=== PATIENT | female | born 1960 | race Caucasian/White ===

== ENCOUNTER 2023-06-01 10:55 | Outpatient (RCR) | payer OTHER, SELFPAY | END 2023-06-01 23:59 | disposition home or self-care (01) | LOC: RPT 10:55 | PROVIDERS: ATTENDING PHYSICIAN Orthopaedic Surgery Sports Medicine; FAMILY PHYSICIAN Family Medicine | DX: S83.411D Sprain of medial collateral ligament of right knee, subsequent encounter (principal); Z73.6 Limitation of activities due to disability; R26.89 Other abnormalities of gait and mobility | CPT/HCPCS: 97010; 97110 ==

== ENCOUNTER 2024-11-18 16:57 | Emergency (ER) | payer OTHER, SELFPAY ==
[2024-11-18 17:02] VITALS: BP 189/91
[2024-11-18 19:38] VITALS: BMI 35.5
[2024-11-18 20:07] LABS: Hematocrit 44.4 % (37.0-47.0); Hemoglobin 14.7 g/dL (12.0-16.0); Mean Corp Hgb Conc. 33.1 g/dL (33.0-37.0); Mean Corpuscular Volume 85.9 fL (81.0-99.0); Nucleated Red Blood Cells % 0 %; Platelet Count 222 10^3/uL (130-400); Red Cell Dist. Width 13.6 % (11.5-14.5)
[2024-11-18 20:10] LABS: Urine Character Clear (Clear)
[2024-11-18 20:24] LABS: ALT (SGPT) 17 U/L (0-35); AST (SGOT) 21 U/L (14-36); Albumin 4.4 g/dl (3.5-5.0); Alkaline Phosphatase 119 U/L (38-126); Blood Urea Nitrogen 13 mg/dl (7-17); Calcium 9.9 mg/dl (8.4-10.2); Carbon Dioxide 27 mmol/L (22-30); Chloride 108 mmol/L (98-107); Estimated Creatinine Clearance 122 ml/min; Glucose 103 mg/dl (70-99); Potassium 3.8 mmol/L (3.5-5.1); Sodium 140 mmol/L (135-145); Total Protein 6.8 g/dl (6.3-8.2); eGFR > 60.00
[2024-11-18 21:19] VITALS: BP 150/73
[2024-11-18 22:24] VITALS: BP 136/60; BP 139/60
[2024-11-18 22:28] VITALS: BP 139/60
--- NOTE | 2024-11-18 22:36 | ED.GENMED ---
History of Present Illness
General
Chief Complaint: Rectal Bleeding
Source: patient
Exam Limitations: none
Time Seen by Provider: 11/18/24 19:47
History of Present Illness
History of Present Illness:
See MDM
Past History
Past History
ED Past Medical History: Asthma, Cancer (Cervical cancer, leukemia), Hypercholesterolemia and Other (Seasonal allergies, diverticulitis)
ED Past Surgical History: Gynecological (Hysterectomy)
Social History
Tobacco: Smoker
Alcohol: Occasional
Drug: None
Personal:
Living: with family
Family History
Family History: CAD and Other (Father with history of blood clots)
Phy Exam
Physical Exam
Physical Exam:
See MDM
Course
Orders/Labs/Results
Orders:
Orders
11/18/24
Complete Blood Count/With Diff Urgent
Comprehensive Metabolic Panel Urgent
11/18/24 19:59
Urinalysis Reflex To Culture Urgent
Date Specimen was Collected: 11/18/24
Time Specimen was Collected: 19:57
Urine Microscopic Reflex Cult Urgent
Urine Culture Urgent
DEANDRA Source: U
Specimen Description:
Date Specimen was Collected: 11/18/24
Time Specimen was Collected: 19:57
11/18/24 22:35
LevoFLOXacin [Levaquin] 500 mg PO NOW STA
MetroNIDAZOLE [Flagyl] 500 mg PO NOW STA
11/18/24 22:36
CT Abd/pel Without Iv Or Oral Urgent
Comment:
Reason For Exam: left flank and LLQ pain
Abnormal Lab Results
11/18/24 11/18/24
19:59 Unknown
WBC 16.1 H 10^3/uL
(4.8-10.8)
MPV 11.5 H fL
(7.4-10.4)
Abs Immat Gran (auto) 0.1 H 10^3/uL
(0-0.05)
Absolute Neuts (auto) 11.9 H 10^3/uL
(1.4-6.5)
Absolute Monos (auto) 1.3 H 10^3/uL
(0.1-0.6)
Lymphocytes % 17.4 L %
(20.5-51.1)
Chloride 108 H mmol/L
(98-107)
Glucose 103 H mg/dl
(70-99)
Ur Occult Blood Reflex 4+ A
(Negative)
Urine Nitrite (Reflex) Positive A
(Negative)
Leukocyte Esterase Rfl 3+ A
(Negative)
Urine RBC 7-10 A /HPF
(0-2)
Urine WBC (Reflex) 11-15 A /HPF
(0-5)
Urine Bacteria (Reflex) Many A
(Negative)
11/18/24 Unknown
11/18/24 Unknown
Vital Signs
Initial and Last Documented VS:
Initial Vital Signs
Temp Pulse Resp BP Pulse Ox
98.6 F 105 16 189/91 95
11/18/24 17:02 11/18/24 17:02 11/18/24 17:02 11/18/24 17:02 11/18/24 17:02
Last Documented Vital Signs
Temp Pulse Resp BP Pulse Ox
98.7 F 84 20 139/60 96
11/18/24 19:40 11/18/24 22:28 11/18/24 22:28 11/18/24 22:28 11/18/24 22:37
MDM/Problems Addressed
Differential Diagnosis Includes:
HPI and MDM Narrative:
64-year-old female presenting with left lower quadrant pain. This is also associated with left lower back pain. She started to notice bright rectal bleeding as well. Patient states this is very similar presentation to her prior episode of
diverticulitis. She denies kidney stones.
Blood work and urinalysis done prior to my assessment. Hemoglobin stable. Mild elevated white blood cell count noted.
She has a soft and minimally tender left lower quadrant exam. Given her prior history, I am concerned about diverticulitis. Given no blood thinners with a normal hemoglobin, I am less worried about rectal bleeding.
Given her allergy profile, will start Levaquin and Flagyl and obtain CT to look for any evidence of complicated diverticulitis versus alternative pathology such as kidney stone
Physical exam
General: Well appearing and non-toxic
HEENT: protecting airway
Neck: appears supple
CV: No evidence of cyanosis
Resp: No accessory muscle use
Abd: Non-distended. Mild left lower quadrant tenderness
Extremities: No deformities
Neuro: alert
Psych: Normal affect
Skin: Intact
Problems Addressed including Acute and Chronic Conditions affecting care:
1. Diverticulitis
Acuity: acute
Prognosis: stable
Details: Will start Levaquin and Flagyl. Will obtain CT to rule out any evidence of perforation
Differential Diagnosis (but not limited to): Diverticulosis, diverticulitis, colitis
Testing considered: Renal ultrasound
Drug therapy (if applicable): OTC meds, please see d/c instruction regarding Rx drugs
Amount and/or Complexity of Data Reviewed
Clinical info obtained from: Patient
External data reviewed: N/A
Labs I independently reviewed (but not limited to): Leukocytosis
Radiology: N/A
Pulse Ox: not hypoxic
EKG independently reviewed: N/A
Records Management Analyst: N/A
Critical Care: N/A
Risk of Complication:
Social Determinants of health: Good social support
Discussed with other providers: N/A
Escalation of Care includes Admit/Obs: After being observed in the Emergency Department, pt stable for discharge.
Occasional wrong word or 'sound a like' substitutions may have occurred due to the inherent limitations of voice recognition software. Read the chart carefully and recognize, using context, where substitutions have occurred.
*Pulse Oximetry
SaO2: 96
Oxygen Mode of Delivery: Room air
Patient hypoxic: no
*Critical Care Note
Total Time (30-74mins, 75-104mins- exclusive of procedures): Not Applicable
ED Attending Note
-
Portions of this chart may have been created with voice recognition software.� Occasional wrong word or��sound alike� substitutions may have occurred due to the inherent limitations of voice recognition software.
Discharge Plan
Departure
Discharge Problem:
Diverticulitis
Instructions: Diverticulitis
Prescriptions:
New
metronidazole 500 mg Tablet
500 mg PO TID Qty: 21 0RF
levofloxacin 500 mg Tablet
500 mg PO DAILY Qty: 7 0RF
No Action
simvastatin 40 mg Tablet
40 mg PO HS
metoprolol succinate 25 mg Tablet Extended Release 24 Hr
37.5 mg PO QPM
azelastine 137 mcg (0.1 %) Donnelly,Non-Aerosol
2 spray INTRANASAL BID PRN (Reason: congestion)
dicyclomine 10 mg Capsule
10 mg PO BID PRN (Reason: IBS)
Asmanex HFA 100 mcg/actuation Hfa Aerosol Inhaler
2 puff INHALATION R BIDPRN PRN (Reason: sob)
Medical Marijuana
1 inh inhalation BIDPRN PRN (Reason: stomach issues)
Patient Comments:
11/18/2024, pt. uses medical marijuana in vape form and inhales 1 time BIDPRN for her stomach issues.
Medical Marijuana
1 applic topical DAILYPRN PRN (Reason: apply to right foot, ankle, & knee)
Patient Comments:
11/18/2024, pt. uses [employer]ore transdermal lotion which includes 200 mg of CBD and 200 mg of THC and she applies it to her right foot, ankle, & knee as needed.
Medical Marijuana
1 applic topical HSPRN PRN (Reason: apply to left shoulder)
Patient Comments:
11/18/2024, pt. uses medical marijuana patches and applies 0.5 patch to their left shoulder for pain.
omeprazole
1 tab PO DAILYPRN PRN (Reason: gerd)
Patient Comments:
11/18/2024, pt. states that they take a dissolvable tablet form of this med.
Medical Marijuana
3 inh inhalation HSPRN PRN (Reason: sleep)
Patient Comments:
11/18/2024, pt. uses medical marijuana in vape form and inhales 3 times HSPRN for sleep.
Referrals:
Live Gan DO [Family Provider, Family Practice]
Activity Restrictions/Additional Instructions:
Please return for any worsening symptoms.
You may return at any time if you have further concerns.
Please follow up with your doctor at the first available appointment, preferably this week.
Thank you for choosing [facility].
Interventions
Interventions:
*General Assessment Last Done: 11/18/24 19:40
*Neglect/Abuse Screening Last Done: 11/18/24 19:40
*ED- Fall Risk Assessment Last Done: 11/18/24 19:40
*ED COVID-19 Vaccine History Last Done: 11/18/24 19:40
XO-Obepea-Whqixtatin Assessment Last Done: 11/18/24 19:40
ED- Cardiac Assessment Last Done: 11/18/24 19:40
ED- Pulmonary Assessment Last Done: 11/18/24 19:40
Discharge Date and Time
Print Language: SWEDISH
[2024-11-18] MEDS: LEVAQUIN 500 MG PO (22:40)
[2024-11-18] MEDS: FLAGYL 500 MG PO (22:40)
[2024-11-19] VITALS: BP 143/82
[2024-11-19] MEDS: ZOFRAN ODT (ORALLY DISINTEGRATING) 4 MG PO (00:01)
== END 2024-11-19 00:04 | disposition home or self-care (01) ==
LOC: EMR 16:57
PROVIDERS: Student in an Organized Health Care Education/Training Program; EMERGENCY PHYSICIAN Student in an Organized Health Care Education/Training Program; FAMILY PHYSICIAN Family Medicine
DX: K57.32 Diverticulitis of large intestine without perforation or abscess without bleeding (principal); K62.5 Hemorrhage of anus and rectum; J45.909 Unspecified asthma, uncomplicated; E78.00 Pure hypercholesterolemia, unspecified; F17.200 Nicotine dependence, unspecified, uncomplicated; Z82.49 Family history of ischemic heart disease and other diseases of the circulatory system; Z85.41 Personal history of malignant neoplasm of cervix uteri; Z90.710 Acquired absence of both cervix and uterus
CPT/HCPCS: 99284; 74176; 80053; 81003; 81015; 85025; 87086; 93005

== ENCOUNTER → 2024-12-12 12:24 | Outpatient (REF) | payer SELFPAY | LOC: HWLAB 12:24 | PROVIDERS: ATTENDING PHYSICIAN Internal Medicine Gastroenterology; FAMILY PHYSICIAN Family Medicine | DX: R19.4 Change in bowel habit (principal); E78.5 Hyperlipidemia, unspecified | CPT/HCPCS: 87045; 87046; 87324; 87328; 87329; 87427; 87449 ==